=== PATIENT | female | born 1930 | race Two or more races ===

== ENCOUNTER 2017-07-25 07:43 | Inpatient (IN) | payer MEDICARE ==
[2017-07-25] VITALS (29 sets, daily range): BP systolic 89–169; BP diastolic 42–83
[~2017-07-25] VITALS: Ht 160 cm; Wt 51.3 kg
--- NOTE | 2017-07-25 07:48 | NUR ---
MARIAH FROM [facility] DUE TO SOB. PATIENT RECEIVED ON BREATHING TREATMENT SATING 95% HOWEVER PATIENT APPEARS IN DISTRESS WITH RR OF 30. PATIENT IS AWAKE AND ALERT. SKIN IS WARM TO TOUCH AND NON DIAPHORETIC, TEMP 99.6. 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 CONNECTED PT TO TELE MONITOR,. MD DAVIS AT BEDSIDE WITH AN ORDER TO PLACE PT ON BIPAP.
[2017-07-25] MEDS ORDERED: methylPREDNISolone SOD SUCC 125 MG/2ML VIAL ONE (07:54)
[2017-07-25] MEDS ORDERED: ALBUTEROL FS 2.5 MG/3 ML VIAL.NEB CONTNEB ONE (08:00)
[2017-07-25] MEDS ORDERED: IPRATROPIUM NEB FS 0.5 MG/2.5 ML AMPUL.NEB NEB ONE (08:00)
[2017-07-25] MEDS ORDERED: methylPREDNISolone SOD SUCC 125 MG/2ML VIAL IV ONE (08:00)
--- NOTE | 2017-07-25 08:15 | NUR ---
DRY BOSS AT BS
[2017-07-25] MEDS ORDERED: IPRATROPIUM NEB FS 0.5 MG/2.5 ML AMPUL.NEB ONE (08:17)
[2017-07-25] MEDS ORDERED: ALBUTEROL FS 2.5 MG/3 ML VIAL.NEB ONE (08:17)
[2017-07-25] MEDS ORDERED: TIOT18CA3 IH (08:18)
[2017-07-25] MEDS ORDERED: IPRA0.2S9 IH (08:18)
[2017-07-25] MEDS ORDERED: ACET-868 PO ×2 (08:18)
[2017-07-25] MEDS ORDERED: LEVO50TA8 PO (08:18)
[2017-07-25] MEDS ORDERED: ZAFI20TA13 PO (08:18)
[2017-07-25] MEDS ORDERED: POLY15DR40 EACHEYE (08:18)
[2017-07-25] MEDS ORDERED: DONE10TA44 PO (08:18)
[2017-07-25] MEDS ORDERED: ZINC220C8 PO (08:18)
[2017-07-25] MEDS ORDERED: ASCO500T9 PO (08:18)
[2017-07-25] MEDS ORDERED: FLUT1BLS IH (08:18)
[2017-07-25] MEDS ORDERED: MULT-447 PO (08:18)
[2017-07-25] MEDS ORDERED: ALBU18HF2 IH (08:18)
[2017-07-25] MEDS ORDERED: CALC-261 PO (08:18)
[2017-07-25] MEDS ORDERED: CITA20TA19 PO (08:18)
[2017-07-25] MEDS ORDERED: AMIN30LI4 PO (08:19)
[2017-07-25] MEDS ORDERED: OLAN2.5T3 PO (08:19)
--- NOTE | 2017-07-25 08:25 | NUR ---
RT AT BEDSIDE FOR BREATHIGN TX
--- NOTE | 2017-07-25 08:29 | NUR ---
PT IS GOING TO ROOM 255
--- NOTE | 2017-07-25 08:29 | NUR ---
URINE SAMPLE SENT TO LAB
[2017-07-25 08:34] LABS: BASOPHILS # (AUTO) 0.1 /CMM (0.0-0.2); BASOPHILS % (AUTO) 0.3 % (0.0-2.0); EOSINOPHILS # (AUTO) 0.3 /CMM (0.0-0.7); EOSINOPHILS % (AUTO) 1.4 % (0.0-6.0); HEMATOCRIT 35 % (33-45); LYMPHOCYTES # (AUTO) 2.4 /CMM (0.8-4.8); LYMPHOCYTES % (AUTO) 13.5 % (20.0-44.0); MEAN CORPUSCULAR HEMOGLOBIN 25 PG (26.0-33.0); MEAN CORPUSCULAR HGB CONC 31 g/dl (31.0-36.0); MEAN CORPUSCULAR VOLUME 81 fL (82-100); MONOCYTES # (AUTO) 1.2 /CMM (0.1-1.30); MONOCYTES % (AUTO) 6.6 % (2.0-12.0); NEUTROPHILS # (AUTO) 13.7 /CMM (1.8-8.9); NEUTROPHILS % (AUTO) 78.2 % (43.0-81.0); PLATELET COUNT (AUTO) 262 /CMM (150-450); RDW COEFFICIENT OF VARIATION 15.2 (11.5-15.0); RED BLOOD CELL COUNT(AUTO) 4.33 MIL/uL (4.0-5.2); WHITE BLOOD COUNT (AUTO) 17.5 K/uL (4.3-11.0)
[2017-07-25 08:36] LABS: INR 0.94 (0.87-1.13)
--- NOTE | 2017-07-25 08:38 | NUR ---
PATIENT FOUND REMOVING BIPAP, STATING " I CANT BREATH ON THIS THING" EXPLAINED TO THE PATIENT THE IMPORTANCE OF BIPAP FOR OXYGEN. PATIENT AGREED TO KEEP IT BACK STATING " PUT IT ON PLEASE. PT WAS PUT BACK ON BIPAP.
--- NOTE | 2017-07-25 08:45 | NUR ---
PATIENT NOTED WITH BIPAP OFF AGAIN, IMMIDIATELY PLACED PT BACK ON BIPAP. EXPLAINED TO THE PATIENT THE IMPORTANCE AND VERBALIZED UNDERSTANDING. MD DAVIS MADE AWARE AND OBTAINED AN ORDER FOR SOFT RESTRAINTS. ASKED JANETH BROWN TO PUT RESTRAINTS. PATIENT'S VSS.
--- NOTE | 2017-07-25 08:50 | NUR ---
RT NOTE WALKED INTO PATIENTS ROOM AND FOUND WITH BIPAP MASK OFF WITH ALARM GOING OFF. PT CONTINUES TO REMOVE MASK. PT PLACED BACK ON BIPAP WITH MODERATE RESP DISTRESS. JAH KILGORE WAS TOLD AND IS AWARE.
[2017-07-25 08:51] LABS: APPEARANCE,URINE CLEAR (CLEAR); BILIRUBIN,URINE NEGATIVE (NEGATIVE); BLOOD, URINE TRACE-INTA Ery/uL (NEGATIVE); COLOR,URINE YELLOW (YELLOW); KETONES,URINE NEGATIVE (NEGATIVE); LEUKOCYTE ESTERASE ,URINE NEGATIVE (NEGATIVE); NITRITE, URINE NEGATIVE (NEGATIVE); PROTEIN,URINE TRACE mg/dl (NEGATIVE); UGLUCOSE NEGATIVE (NEGATIVE); UROBILINOGEN,URINE 0.2 EU/dL (0.2)
[2017-07-25 08:55] LABS: BACTERIA,URINE None seen /HPF (None Seen); SQUAMOUS EPITHELIAL CELL,UR Few /HPF (None Seen); WBC,URINE NONE SEEN /HPF (0-3)
[2017-07-25] MEDS ORDERED: DILTIAZEM HCL 50 MG IV IV ONE (09:00)
[2017-07-25] MEDS ORDERED: DILTIAZEM HCL 25 MG IV ONE (09:08)
--- NOTE | 2017-07-25 09:09 | NUR ---
PANEL ON-CALL PAGED
[2017-07-25] MEDS ORDERED: LORAZEPAM INJ 2 MG/ML VIAL IV ONE (09:30)
[2017-07-25 09:31] LABS: CARBON DIOXIDE 26 mmol/L (21-32); CHLORIDE 99 mmol/L (98-107); CREATININE 1.1 mg/dL (0.6-1.3); GLUCOSE 152 mg/dL (74-106); POTASSIUM 4.2 mmol/L (3.5-5.1); SODIUM SERUM 137 mmol/L (136-145); UREA NITROGEN, BLOOD 27 mg/dL (7-18)
[2017-07-25 09:36] LABS: BILIRUBIN,DIRECT 0.1 mg/dL (0.0-0.2); BILIRUBIN,TOTAL 0.3 mg/dL (0.2-1.0)
[2017-07-25 09:37] LABS: ALANINE AMINOTRANSFERASE 22 U/L (12-78); ALBUMIN 2.9 g/dL (3.4-5.0); ALKALINE PHOSPHATASE 70 U/L (46-116); ASPARTATE AMINOTRANSFERASE 31 U/L (15-37); TOTAL PROTEIN, SERUM 7.7 g/dL (6.4-8.2)
[2017-07-25 09:38] LABS: ABG BASE EXCESS 0.4 mmol/L; ABG OXYGEN SATURATION 99.2 % (92.0-98.5); ABG PCO2 44.5 mmHg (35.0-45.0); ABG PO2 486.4 mmHg (75.0-100.0); AaDO2 182.1 mmHg; COHb 0.3 % (0.5-1.5); MetHb 0.4 % (0.0-1.5); O2Hb 98.5 % (94.0-97.0); SITE, ABG Left Radial; VENT MODE, BG ST 15/5 16 100%
--- NOTE | 2017-07-25 09:38 | NUR ---
Kwaku solano in ED - 07/25/17 at 1259 by JOSE ICU NURSES NOT AWARE YET WHO'S ADMITTING THE PATIENT. CHARGE NURSE STILL IN AM MEETING.
[2017-07-25] MEDS ORDERED: LORAZEPAM INJ 2 MG/ML VIAL ONE (09:40)
[2017-07-25 09:50] LABS: B-TYPE NATRIURETIC PEPTIDE 674 PG/ML (0-125)
--- NOTE | 2017-07-25 10:02 | NUR ---
REPORT GIVEN TO JAH LU FOR AMARILIS
[2017-07-25] MEDS ORDERED: IV NS 0.9% 1,000 ML IV PRN (10:36)
--- NOTE | 2017-07-25 10:53 | NUR ---
PATIENT WAS TRANSFFERED TO ICU VIA ACLS. VSS
[2017-07-25] MEDS ORDERED: LORAZEPAM INJ 2 MG/ML VIAL IV PRN (11:00)
[2017-07-25] MEDS ORDERED: IPRATROPIUM NEB FS 0.5 MG/2.5 ML AMPUL.NEB IH PRN (11:00)
[2017-07-25] MEDS ORDERED: HYDROCODONE/APAP 5/325MG 1 EACH TABLET PO PRN (11:00)
[2017-07-25] MEDS ORDERED: MAG HYDROX/AL HYDROX/SIMETH 30 ML UDC PO PRN (11:00)
[2017-07-25] MEDS ORDERED: ZOLPIDEM TARTRATE 5 MG TABLET PO PRN (11:00)
[2017-07-25] MEDS ORDERED: ONDANSETRON HCL/PF 4 MG/2 ML VIAL IVP PRN (11:00)
[2017-07-25] MEDS ORDERED: DILTIAZEM HCL 25 MG IV IV PRN (11:00)
[2017-07-25] MEDS ORDERED: ALBUTEROL FS 2.5 MG/3 ML VIAL.NEB NEB PRN (11:00)
[2017-07-25] MEDS ORDERED: MORPHINE SULFATE INJ 4 MG/ML DISP.SYRIN IV PRN (11:00)
--- NOTE | 2017-07-25 11:00 | NUR ---
RN NOTES RECEIVED PT ON BED, A/Ox1-2, DEMENTED, RESPIRATION EVEN AND UNLABORED, ENCOURAGED DEEP AN SLOW BREATHING , ON 4L O2 N/C , ON TELE , SR-ST , BEATTY DRAINING TO GRAVITY WITH YELLOW URINE, R AC IV G 20 AND L AC IV G 18 SITES CLEAN, DRY AND INTACT , SUPPORTIVE FAMILY AT THE BEDSIDE, WOUND CONSULT ORDERED , SR UP x3, CALL LIGHT WITHIN EASY REACH, BED LOCKED AND IN LOWEST POSITION ,CONTINUE TO MONITOR PT CLSOELY .
[2017-07-25] MEDS: ENOXAPARIN SODIUM 30 MG/0.3 ML DISP.SYRIN SQ SCH (11:11)
[2017-07-25] MEDS: methylPREDNISolone SOD SUCC 125 MG/2ML VIAL IV SCH ×2 (11:11→17:00)
[2017-07-25] MEDS ORDERED: POLYVINYL ALCOHOL 15 ML BOTTLE EACHEYE PRN (12:00)
[2017-07-25] MEDS ORDERED: IPRATROPIUM NEB FS 0.5 MG/2.5 ML AMPUL.NEB NEB SCH (12:00)
--- NOTE | 2017-07-25 14:36 | NUR ---
RN NOTES DR ISBELL AT THE BEDSIDE , O2 SAT 96%, CONTINUE TO MONITOR .
--- NOTE | 2017-07-25 14:39 | NUR ---
RN NOTES ABG ORDERED PER DR ISBELL , HR IN 90'S , BP 109/49 , O2 SAT 96%, CONTINUE TO MONITOR .
[2017-07-25 14:41] LABS: ABG BASE EXCESS 0.6 mmol/L; ABG OXYGEN SATURATION 92.9 % (92.0-98.5); ABG PCO2 43.1 mmHg (35.0-45.0); ABG PH 7.392 (7.350-7.450); ABG PO2 66.7 mmHg (75.0-100.0); AaDO2 168.9 mmHg; COHb 0.1 % (0.5-1.5); MetHb 0.4 % (0.0-1.5); O2Hb 92.4 % (94.0-97.0); SITE, ABG Left Radial
--- NOTE | 2017-07-25 14:57 | NUR ---
RN NOTES DR ISBELL NOTIFIED REGARDING LOW URIN OUTPUT . NEW ORDER RECEIVED.
[2017-07-25] MEDS ORDERED: IV NS 0.9% 250 ML IV ONE (15:00)
[2017-07-25] MEDS: Z GUARD REMEDY 2 OZ OINT TP PRN (15:33)
[2017-07-25] MEDS: CITALOPRAM HYDROBROMIDE 20 MG TABLET PO SCH (16:59)
--- NOTE | 2017-07-25 18:00 | NUR ---
RN NOTES PT REMAINS THE SAME, O2 SAT 100% ON 4L O2 N/C , PT IS MOUTH BREATHER WHEN SHE SLEEPS , NS AT 100CC/HR RUNNING VIA R AC IV SITE, BEATTY DRAINING TO GRAVITY , SR UP x3, CALL LIGHT WITHIN EASY REACH , WILL ENDORSE TO PM SHIFT FOR AMARILIS .
[2017-07-25] MEDS: IPRATROPIUM NEB FS 0.5 MG/2.5 ML AMPUL.NEB NEB SCH (19:47)
[2017-07-25] MEDS: ALBUTEROL FS 2.5 MG/3 ML VIAL.NEB NEB SCH (19:47)
--- NOTE | 2017-07-25 20:24 | NUR ---
AIRFIELD ENGINEER OFFICER DF PT PLACED ON BIPAP BY RT RAND. PT WITH RESPIRATORY RATE OF 40-45. PT NOTED WITH DESATURATIONS OF 85%-90%. PT WITH PARKINSON DISEASE WITH TREMBLING OF BUE/RUE CAUSING ARTIFACTS OF EKG/PULSE OX MONITORING. BASELINE O2 SAT OF 100%.PT LAST ABG DURING DAYSHIFT OF 7.39/CO2 43/02 66/HCO3 25.6/O2 SAT OF 92.9% DR ISBELL AWARE OF LAST ABG. PT A/O X 1-2 FOLLOWS SIMPLE COMMANDS, ABLE TO LET NEEDS BE KNOWN.
[2017-07-25] MEDS: IV NS 0.9% 1,000 ML IV PRN (21:41)
[2017-07-25] MEDS: DONEPEZIL 5 MG TABLET PO SCH (22:00)
[2017-07-26] VITALS (19 sets, daily range): BP systolic 99–134; BP diastolic 56–78
[2017-07-26] MEDS: methylPREDNISolone SOD SUCC 125 MG/2ML VIAL IV SCH ×4 (00:19→17:58)
[2017-07-26] MEDS: IPRATROPIUM NEB FS 0.5 MG/2.5 ML AMPUL.NEB NEB SCH ×4 (01:36→18:55)
[2017-07-26] MEDS: ALBUTEROL FS 2.5 MG/3 ML VIAL.NEB NEB SCH ×4 (01:36→18:55)
--- NOTE | 2017-07-26 02:30 | NUR ---
FAST FOOD SHIFT LEAD DF PT ATTEMPTING TO REMOVE BIPAP, I PLACED BIPAP BACK ON PT AND PT WANTS TO REMOVE PT STATES SHE IS UNABLE TO TOLERATE BIPAP ANYMORE.PT WAS ON BIPAP SINCE 07/25/17 @2029.PT VSS PLACED ON N/C@4LPM WITH O2 SAT OF 99-100%.RR OF 32RPM. NO RESPIRATORY DISTRESS NOTED. PT FOLLOWING COMMANDS A/OX2 WITH BASELINE CONFUSION.
[2017-07-26 04:42] LABS: HEMATOCRIT 28 % (33-45); HEMOGLOBIN 9.2 g/dL (11.5-14.8); LYMPHOCYTES # (AUTO) 0.5 /CMM (0.8-4.8); MEAN CORPUSCULAR HEMOGLOBIN 26 PG (26.0-33.0); MEAN CORPUSCULAR HGB CONC 33 g/dl (31.0-36.0); MEAN CORPUSCULAR VOLUME 80 fL (82-100); MONOCYTES # (AUTO) 0.3 /CMM (0.1-1.30); PLATELET COUNT (AUTO) 217 /CMM (150-450); RDW COEFFICIENT OF VARIATION 15.1 (11.5-15.0); RED BLOOD CELL COUNT(AUTO) 3.51 MIL/uL (4.0-5.2); WHITE BLOOD COUNT (AUTO) 15.8 K/uL (4.3-11.0)
[2017-07-26 05:04] LABS: CALCIUM, SERUM 8.3 mg/dL (8.5-10.1); CARBON DIOXIDE 28 mmol/L (21-32); CHLORIDE 103 mmol/L (98-107); CREATININE 0.7 mg/dL (0.6-1.3); GLUCOSE 143 mg/dL (74-106); MAGNESIUM 1.9 mg/dL (1.8-2.4); PHOSPHORUS 2.7 mg/dL (2.5-4.9); POTASSIUM 4.1 mmol/L (3.5-5.1); SODIUM SERUM 136 mmol/L (136-145); UREA NITROGEN, BLOOD 25 mg/dL (7-18)
[2017-07-26 05:23] LABS: LYMPHOCYTES % (MANUAL) 6 % (16-48); MONOCYTES % (MANUAL) 2 % (0-11.0); NEUTROPHILS % (MANUAL) 92 (42-76)
--- NOTE | 2017-07-26 07:41 | NUR ---
RN NOTES RECEIVED PT FROM SAFETY SITTER IN STABLE CONDITION, A&0X1-2 WITH PERIODS OF CONFUSION. ON 4L NC SATING WELL NO SOB OR DISTRESS NOTED. SR ON THE TELE CARYL HR 87. LAC 18G IV SITE INTACT WITH NS@100ML/HR. BEATTY DRAINING TO GRAVITY, YELLOW IN COLOR. BED LOCKED AND IN LOWEST POSITION, CALL LIGHT WITHIN REACH, SIDE RAILS UPX3, WILL CONT TO CARYL.
--- NOTE | 2017-07-26 08:10 | NUR ---
WOUND CARE CONSULT: PT PRESENTS WITH SACRAL DEEP TISSUE INJURY WHICH IS INTACT, RT 4TH DORSAL TOE DRY ESCHAR AND BILATERAL LOWER LEG DRY ABRASIONS AND DRY SCAB, PRESENT ON ADMISSION. SLIGHT REDNESS NOTED TO NASAL BRIDGE. BIPAP IS OFF AT THIS TIME. BRUISING NOTED TO UPPER EXTREMITIES. ALL SKIN PROTECTION RECOMMENDATIONS DISCUSSED WITH NURSING STAFF. FIRST STEP MATTRESS ORDERED. WILL SEE PRN. STAFFORD IN AGREEMENT WITH PLAN OF CRE. CURRENT DORIS SCORE IS 11. Addendum: 07/26/17 at 0813 by YURY ANDERSON WNDNU Amended: Links added.
[2017-07-26] MEDS: CITALOPRAM HYDROBROMIDE 20 MG TABLET PO SCH ×2 (08:14→17:57)
[2017-07-26] MEDS: CALCIUM CARB 250MG /VITAMIN D 1 UDTAB PO SCH ×2 (08:14→17:57)
[2017-07-26] MEDS: ASCORBIC ACID 500 MG TABLET PO SCH (08:14)
[2017-07-26] MEDS: PANTOPRAZOLE 40 MG TABLET.DR PO SCH (08:14)
[2017-07-26] MEDS: ZINC SULFATE 220 MG CAPSULE PO SCH (08:14)
[2017-07-26] MEDS: LEVOTHYROXINE SODIUM 50 MCG TABLET PO SCH (08:14)
[2017-07-26] MEDS: MULTIPLE VIT (LYCOPENE/FA/MV,CA,IRON,MIN/LUT)1 TAB PO SCH (08:14)
[2017-07-26] MEDS: ENOXAPARIN SODIUM 30 MG/0.3 ML DISP.SYRIN SQ SCH (08:14)
[2017-07-26] MEDS: PROSOURCE / PROSTAT (PYXIS) 30 ML UDC PO SCH (08:15)
[2017-07-26] MEDS: OLANZAPINE 5 MG/TAB.RAPDIS PO SCH (08:15)
[2017-07-26] MEDS: FLUTICASONE/VILANTEROL 1 EACH BLST.W.DEV IH SCH (08:16)
[2017-07-26] MEDS: NEOMY SULF/BACITRAC ZN/POLY 15 GM TUBE TP SCH (13:12)
--- NOTE | 2017-07-26 14:00 | NUR ---
ICU/COMMERCIAL REAL ESTATE SALES MANAGER OF CARE REPORT RECEIVED FROM ICU NURSE HEIDI, TO CONTINUE CARE. MONITORING CONTINUED.
--- NOTE | 2017-07-26 15:14 | NUR ---
PT TRANSFERRED TO [facility]. HHN DEFERRED ZERO DISTRESS NOTED
--- NOTE | 2017-07-26 15:30 | NUR ---
ICU/LEAD SQL DEVELOPER TO [facility] - ROOM 117#2 REPORT GIVEN TO [facility] NURSE SHRUTHI, TO CONTINUE CARE. PT TRANSFERRED VIA BED, TO [facility].
--- NOTE | 2017-07-26 15:35 | NUR ---
RN NOTE RECEIVED PT FROM ICU ON BED, AOX2, ON NC. ON TELE MONITOR, SR- ST 100, IVF RUNNING, IVS INTACT, F/C IN PLACE, DRAINING URINE. CO PAIN IN STOMACH RELATED TO HARD BM. STANFORD SOFT WRIST RESTRAINTS IN PLACE, CALL LIGHT WITHIN REACH, BED IN LOW, LOCKED POSITION, BED ALARM ON. ON KCI MATTRESS. WILL MONITOR.
[2017-07-26] MEDS ORDERED: POTASSIUM CHLORIDE 20 MEQ POWDER PACKET PO ONE (17:00)
[2017-07-26] MEDS: IV NS 0.9% 1,000 ML IV PRN (17:56)
[2017-07-26] MEDS: MAGNESIUM HYDROXIDE 30 ML UDC PO PRN (18:07)
--- NOTE | 2017-07-26 19:30 | NUR ---
[facility]/RN NOTES: RECEIVED PT. IN BED W/ HOB ELEVATED W/ DAUGHTER SITTING AT BEDSIDE. W/ O2 @ 4LPM VIA N/C SAT 95%. NO C/O SOB OR PAIN AT THIS TIME. ON TELE MONITOR W/ SR @ 92. SOFT BILATERAL WRIST RESTRAINS ARE OFF DAUGHTER IS AT BED SIDE. RAC /LFA SL G 20 PATENT AND INTACT W/ NO S/S OF INFECTION/INFILTRATION NOTED. W/ IVF OF NS @ 100ML /HR . BEDS LOCKED AND IN LOW POSITION. CALL LIGHT W/ REACH. ALL NEEDS MEET.
[2017-07-26] MEDS: DONEPEZIL 5 MG TABLET PO SCH (21:36)
[2017-07-27] VITALS: BP 140/76
[2017-07-27] MEDS: methylPREDNISolone SOD SUCC 125 MG/2ML VIAL IV SCH ×5 (00:15→23:25)
[2017-07-27] MEDS: IPRATROPIUM NEB FS 0.5 MG/2.5 ML AMPUL.NEB NEB SCH ×4 (01:28→19:18)
[2017-07-27] MEDS: ALBUTEROL FS 2.5 MG/3 ML VIAL.NEB NEB SCH ×4 (01:28→19:18)
[2017-07-27 04:00] VITALS: BP 129/72
[2017-07-27] MEDS: IV NS 0.9% 1,000 ML IV PRN (04:09)
--- NOTE | 2017-07-27 07:05 | NUR ---
RN NOTES: RECEIVED PT. ON BED , A/Ox1, RESPIRATION EVEN AND UNLABORED, ON 4L O2 N/C ,NO SOB NOTED. ON TELE SR HR IN 70'S, R AC AND LFA IV SITES CDI, WITH NS AT 100C/HR RUNNING, WITH IVF OF NS @ 100ML /HR . BEDS LOCKED AND IN LOW POSITION. CALL LIGHT WITHIN EASY REACH. HOB ELEVATED, SR UP x3, CONTINUE TO MONITOR PT CLSOELY .
--- NOTE | 2017-07-27 07:28 | NUR ---
[facility]/RN NOTES: NO ACUTE CHANGES NOTED DURING THIS SHIFT. REPORT GIVEN TO AM NURSE FOR AMARILIS.
[2017-07-27 08:00] VITALS: BP 147/85
[2017-07-27] MEDS: CALCIUM CARB 250MG /VITAMIN D 1 UDTAB PO SCH ×2 (08:28→18:08)
[2017-07-27] MEDS: CITALOPRAM HYDROBROMIDE 20 MG TABLET PO SCH ×2 (08:28→18:08)
[2017-07-27] MEDS: LEVOTHYROXINE SODIUM 50 MCG TABLET PO SCH (08:28)
[2017-07-27] MEDS: PANTOPRAZOLE 40 MG TABLET.DR PO SCH (08:28)
[2017-07-27] MEDS: MULTIPLE VIT (LYCOPENE/FA/MV,CA,IRON,MIN/LUT)1 TAB PO SCH (08:28)
[2017-07-27] MEDS: ZINC SULFATE 220 MG CAPSULE PO SCH (08:29)
[2017-07-27] MEDS: ASCORBIC ACID 500 MG TABLET PO SCH (08:29)
[2017-07-27] MEDS: OLANZAPINE 5 MG/TAB.RAPDIS PO SCH (08:29)
[2017-07-27] MEDS: ENOXAPARIN SODIUM 30 MG/0.3 ML DISP.SYRIN SQ SCH (08:30)
[2017-07-27] MEDS: NEOMY SULF/BACITRAC ZN/POLY 15 GM TUBE TP SCH (08:31)
[2017-07-27] MEDS: PROSOURCE / PROSTAT (PYXIS) 30 ML UDC PO SCH (08:31)
[2017-07-27] MEDS: FLUTICASONE/VILANTEROL 1 EACH BLST.W.DEV IH SCH (08:32)
[2017-07-27 11:04] LABS: HEMATOCRIT 27 % (33-45); HEMOGLOBIN 8.8 g/dL (11.5-14.8); LYMPHOCYTES # (AUTO) 0.3 /CMM (0.8-4.8); LYMPHOCYTES % (AUTO) 1.9 % (20.0-44.0); MEAN CORPUSCULAR HEMOGLOBIN 26 PG (26.0-33.0); MEAN CORPUSCULAR HGB CONC 33 g/dl (31.0-36.0); MEAN CORPUSCULAR VOLUME 80 fL (82-100); MONOCYTES # (AUTO) 0.5 /CMM (0.1-1.30); MONOCYTES % (AUTO) 3.2 % (2.0-12.0); NEUTROPHILS # (AUTO) 16.3 /CMM (1.8-8.9); NEUTROPHILS % (AUTO) 94.9 % (43.0-81.0); PLATELET COUNT (AUTO) 240 /CMM (150-450); RED BLOOD CELL COUNT(AUTO) 3.38 MIL/uL (4.0-5.2); WHITE BLOOD COUNT (AUTO) 17.2 K/uL (4.3-11.0)
[2017-07-27 11:19] LABS: ALANINE AMINOTRANSFERASE 26 U/L (12-78); ALBUMIN 2.2 g/dL (3.4-5.0); ALKALINE PHOSPHATASE 50 U/L (46-116); ASPARTATE AMINOTRANSFERASE 18 U/L (15-37); BILIRUBIN,TOTAL 0.2 mg/dL (0.2-1.0); CALCIUM, SERUM 8.1 mg/dL (8.5-10.1); CARBON DIOXIDE 27 mmol/L (21-32); CHLORIDE 104 mmol/L (98-107); CREATININE 0.7 mg/dL (0.6-1.3); GLUCOSE 227 mg/dL (74-106); PHOSPHORUS 1.6 mg/dL (2.5-4.9); POTASSIUM 3.5 mmol/L (3.5-5.1); SODIUM SERUM 139 mmol/L (136-145); UREA NITROGEN, BLOOD 25 mg/dL (7-18)
[2017-07-27 12:00] VITALS: BP 147/85
--- NOTE | 2017-07-27 12:00 | NUR ---
RN NOTES PT PULLED L FA IV OUT , STANFORD SOFT WRIST RESTRAIN PLACED BACK ON FOR PT SAFETY .
[2017-07-27 13:01] LABS: LYMPHOCYTES % (MANUAL) 1 % (16-48); MONOCYTES % (MANUAL) 2 % (0-11.0); NEUTROPHILS % (MANUAL) 97 (42-76)
[2017-07-27] MEDS ORDERED: NEUTRA PHOS 1 POWD.PACKET NG ONE (13:30)
[2017-07-27 16:00] VITALS: BP 121/78
--- NOTE | 2017-07-27 18:00 | NUR ---
RN NOTES PT STABLE, L AC IV SITE CDI, NO SIGNIFICANT CHANGES NOTED ON THIS SHIFT , SR UP x3, CALL LIGHT WITHIN EASY REACH, WILL ENDORSE TO ROAD DRIVER NURSE FOR AMARILIS
--- NOTE | 2017-07-27 19:30 | NUR ---
[facility]/RN NOTES: RECEIVED PT. IN BED W/ HOB ELEVATED. W/ O2 @ 4LPM VIA N/C SAT 95%. NO C/O SOB OR PAIN AT THIS TIME. ON TELE MONITOR W/ SR @ 86. SOFT BILATERAL WRIST RESTRAINS ON. LAC SL G 22 PATENT AND INTACT W/ NO S/S OF INFECTION/INFILTRATION NOTED. BEDS LOCKED AND IN LOW POSITION. CALL LIGHT W/ REACH. ALL NEEDS MEET.
[2017-07-27 20:00] VITALS: BP 122/68
[2017-07-27] MEDS: DONEPEZIL 5 MG TABLET PO SCH (21:27)
[2017-07-28] VITALS: BP_SYST 122; BP_SYST 125; BP_DIAS 68; BP_DIAS 70
[2017-07-28] MEDS: IPRATROPIUM NEB FS 0.5 MG/2.5 ML AMPUL.NEB NEB SCH ×4 (00:46→19:52)
[2017-07-28] MEDS: ALBUTEROL FS 2.5 MG/3 ML VIAL.NEB NEB SCH ×4 (00:46→19:52)
[2017-07-28 04:00] VITALS: BP 140/77
[2017-07-28] MEDS: methylPREDNISolone SOD SUCC 125 MG/2ML VIAL IV SCH ×3 (05:10→17:12)
[2017-07-28 06:39] LABS: HEMATOCRIT 30 % (33-45); HEMOGLOBIN 9.8 g/dL (11.5-14.8); LYMPHOCYTES # (AUTO) 0.6 /CMM (0.8-4.8); LYMPHOCYTES % (AUTO) 4.1 % (20.0-44.0); MEAN CORPUSCULAR HEMOGLOBIN 26 PG (26.0-33.0); MEAN CORPUSCULAR HGB CONC 32 g/dl (31.0-36.0); MEAN CORPUSCULAR VOLUME 80 fL (82-100); MONOCYTES # (AUTO) 0.5 /CMM (0.1-1.30); MONOCYTES % (AUTO) 3.1 % (2.0-12.0); NEUTROPHILS # (AUTO) 14.1 /CMM (1.8-8.9); NEUTROPHILS % (AUTO) 92.8 % (43.0-81.0); PLATELET COUNT (AUTO) 272 /CMM (150-450); RDW COEFFICIENT OF VARIATION 15.2 (11.5-15.0); RED BLOOD CELL COUNT(AUTO) 3.78 MIL/uL (4.0-5.2); WHITE BLOOD COUNT (AUTO) 15.2 K/uL (4.3-11.0)
--- NOTE | 2017-07-28 07:19 | NUR ---
[facility]/RN NOTES: NO ACUTE CHANGES NOTED DURING THIS SHIFT. REPORT GIVEN TO AM NURSE FOR AMARILIS.
[2017-07-28 07:25] LABS: CALCIUM, SERUM 8.8 mg/dL (8.5-10.1); CARBON DIOXIDE 30 mmol/L (21-32); CHLORIDE 100 mmol/L (98-107); CREATININE 0.7 mg/dL (0.6-1.3); GLUCOSE 153 mg/dL (74-106); MAGNESIUM 1.9 mg/dL (1.8-2.4); PHOSPHORUS 2.4 mg/dL (2.5-4.9); SODIUM SERUM 139 mmol/L (136-145); UREA NITROGEN, BLOOD 21 mg/dL (7-18)
--- NOTE | 2017-07-28 07:30 | NUR ---
[facility]/RN AM NOTES: RECEIVED PT. IN BED W/ HOB ELEVATED. AAO X 2, W/ O2 @ 4LPM VIA N/C SAT 95%. NO C/O SOB OR PAIN AT THIS TIME. ON TELE MONITOR W/ SR @ 95. LEFT AC G22, FLSUHES WELL, SITE CLEAR, SOFT BILATERAL WRIST RESTRAINS ON. RELEASED AND CHECKED FOR CIRCULATION, ON REGULAR DIET, SEE NURSING FLOWSHEET FOR SKIN ISSUES, WILL TURN AND REPOSITION, RELEASE AND CHECK CIRCULATION Q 2 HOURS AND BEDS LOCKED AND IN LOW POSITION. CALL LIGHT W/ REACH. CONTINUE TO MONITOR.
[2017-07-28 07:48] LABS: IRON, SERUM 15 ug/dl (50-175); TOTAL IRON BINDING CAPACITY 182 ug/dl (250-450)
[2017-07-28] MEDS: PANTOPRAZOLE 40 MG TABLET.DR PO SCH (07:57)
[2017-07-28] MEDS: LEVOTHYROXINE SODIUM 50 MCG TABLET PO SCH (07:57)
[2017-07-28 08:00] VITALS: BP 133/80
[2017-07-28] MEDS: CALCIUM CARB 250MG /VITAMIN D 1 UDTAB PO SCH ×2 (08:10→17:12)
[2017-07-28] MEDS: FLUTICASONE/VILANTEROL 1 EACH BLST.W.DEV IH SCH (08:10)
[2017-07-28] MEDS: MULTIPLE VIT (LYCOPENE/FA/MV,CA,IRON,MIN/LUT)1 TAB PO SCH (08:10)
[2017-07-28] MEDS: CITALOPRAM HYDROBROMIDE 20 MG TABLET PO SCH ×2 (08:11→17:12)
[2017-07-28] MEDS: ZINC SULFATE 220 MG CAPSULE PO SCH (08:11)
[2017-07-28] MEDS: OLANZAPINE 5 MG/TAB.RAPDIS PO SCH (08:11)
[2017-07-28] MEDS: PROSOURCE / PROSTAT (PYXIS) 30 ML UDC PO SCH (08:11)
[2017-07-28] MEDS: ASCORBIC ACID 500 MG TABLET PO SCH (08:11)
[2017-07-28] MEDS: NEOMY SULF/BACITRAC ZN/POLY 15 GM TUBE TP SCH (08:12)
[2017-07-28] MEDS: ENOXAPARIN SODIUM 30 MG/0.3 ML DISP.SYRIN SQ SCH (08:13)
--- NOTE | 2017-07-28 09:30 | NUR ---
[facility] RN NOTES ADMINISTERED DUE MEDS.
[2017-07-28] MEDS: POTASSIUM CHLORIDE 20 MEQ TAB.PRT.SR PO SCH ×3 (10:48→12:44)
[2017-07-28 12:00] VITALS: BP 127/68
[2017-07-28] MEDS ORDERED: K PHOS NEUTRAL 250 MG TABLET PO ONE (13:00)
[2017-07-28 16:00] VITALS: BP 120/67
--- NOTE | 2017-07-28 18:25 | NUR ---
[facility]/RN CLOSING NOTES: PT. RESTING IN BED COMFORTABLY W/ HOB ELEVATED. AAO X 2, W/ O2 @ 4LPM VIA N/C SAT 97%. NO C/O SOB OR PAIN AT THIS TIME. ON TELE MONITOR W/ SR HR 92. LEFT AC G22, FLUSHES WELL, SITE CLEAR, SOFT BILATERAL WRIST RESTRAINTS RELEASED AT THIS TIME. ON REGULAR DIET, TURNED AND REPOSITIONED Q 2 HOURS, PM CARE DONE, PERFORMED PRESCRIBED WOUND TREATMENT, BEDS LOCKED AND IN LOW POSITION. CALL LIGHT W/ IN REACH. ALL NEEDS MET, NO OTHER SIGNIFICANT CHANGE IN CONDITION. WILL ENDORSE TO NEXT SHIFT FOR AMARILIS.
--- NOTE | 2017-07-28 19:41 | NUR ---
[facility] RN INITIAL NOTES: RECEIVED PT. IN BED W/ HOB ELEVATED. AAO X 2, W/ O2 @ 4LPM VIA N/C SAT 96%. NO C/O SOB OR PAIN AT THIS TIME. ON TELE MONITOR W/ SR @ 90'S. LEFT AC G22, FLUSH WELL, SITE CLEAR, SOFT BILATERAL WRIST RESTRAINS ON. RELEASED AND CHECKED FOR CIRCULATION, ON REGULAR DIET, SEE NURSING FLOW SHEET FOR SKIN ISSUES, WILL TURN AND REPOSITION, RELEASE AND CHECK CIRCULATION Q 2 HOURS AND BEDS LOCKED AND IN LOW POSITION. CALL LIGHT W/ REACH. CONTINUE TO MONITOR.
[2017-07-28 20:00] VITALS: BP 133/68
[2017-07-28] MEDS: DONEPEZIL 5 MG TABLET PO SCH (21:23)
[2017-07-29 00:43] VITALS: BP 133/68
[2017-07-29] MEDS: methylPREDNISolone SOD SUCC 125 MG/2ML VIAL IV SCH ×4 (00:53→17:13)
[2017-07-29] MEDS: IPRATROPIUM NEB FS 0.5 MG/2.5 ML AMPUL.NEB NEB SCH ×4 (01:55→19:22)
[2017-07-29] MEDS: ALBUTEROL FS 2.5 MG/3 ML VIAL.NEB NEB SCH ×4 (01:55→19:23)
[2017-07-29 04:00] VITALS: BP 160/88
--- NOTE | 2017-07-29 06:10 | NUR ---
RN [facility] CLOSING NOTES ENDORSED PT ON NC @ 4L, NO EPISODE OF DISTRESS OR SIGN OF PAIN, KEPT CLEAN AND DRY, WELL REPOSITIONED, PT ON SOFT WRIST RESTRAIN, GETS ANXIOUS WHEN WOKEN UP TO OBTAIN VS, IN AM BP UPON WAKING PT BP TRENDED UP TO 160/88 NO PRN, WILL ENDORSE TO AM SHIFT NURSE TO F/U WITH VS, PT STABLE.
--- NOTE | 2017-07-29 07:05 | NUR ---
RN NOTES: RECEIVED PT. ON BED , A/Ox1, CONFUED , ON 4L O2 N/C , NO SOB NOTED, RESPIRATION EVEN AND UNLABORED, ON TELE SR HR IN 80'S , LEFT AC G22 IV SITE, CDI, SOFT BILATERAL WRIST RESTRAINS ON. RELEASED AND CHECKED FOR CIRCULATION, WILL TURN AND REPOSITION, BEDS LOCKED AND IN LOWEST POSITION. CALL LIGHT WITHIN EASY REACH. SR UP x3, CONTINUE TO MONITOR PT CLSOELY .
[2017-07-29 07:38] LABS: CALCIUM, SERUM 8.6 mg/dL (8.5-10.1); CARBON DIOXIDE 37 mmol/L (21-32); CHLORIDE 96 mmol/L (98-107); CREATININE 0.7 mg/dL (0.6-1.3); GLUCOSE 153 mg/dL (74-106); POTASSIUM 3.5 mmol/L (3.5-5.1); SODIUM SERUM 138 mmol/L (136-145); UREA NITROGEN, BLOOD 18 mg/dL (7-18)
[2017-07-29 08:00] VITALS: BP 134/77
[2017-07-29] MEDS: OLANZAPINE 5 MG/TAB.RAPDIS PO SCH (08:06)
[2017-07-29] MEDS: CITALOPRAM HYDROBROMIDE 20 MG TABLET PO SCH ×2 (08:06→17:14)
[2017-07-29] MEDS: ASCORBIC ACID 500 MG TABLET PO SCH (08:06)
[2017-07-29] MEDS: LEVOTHYROXINE SODIUM 50 MCG TABLET PO SCH (08:06)
[2017-07-29] MEDS: CALCIUM CARB 250MG /VITAMIN D 1 UDTAB PO SCH ×2 (08:06→17:13)
[2017-07-29] MEDS: ZINC SULFATE 220 MG CAPSULE PO SCH (08:06)
[2017-07-29] MEDS: MULTIPLE VIT (LYCOPENE/FA/MV,CA,IRON,MIN/LUT)1 TAB PO SCH (08:06)
[2017-07-29] MEDS: PANTOPRAZOLE 40 MG TABLET.DR PO SCH (08:06)
[2017-07-29] MEDS: FLUTICASONE/VILANTEROL 1 EACH BLST.W.DEV IH SCH (08:08)
[2017-07-29] MEDS: ENOXAPARIN SODIUM 30 MG/0.3 ML DISP.SYRIN SQ SCH (08:08)
[2017-07-29] MEDS: PROSOURCE / PROSTAT (PYXIS) 30 ML UDC PO SCH (08:10)
[2017-07-29] MEDS: NEOMY SULF/BACITRAC ZN/POLY 15 GM TUBE TP SCH (08:11)
[2017-07-29 12:00] VITALS: BP 119/67
[2017-07-29] MEDS: ACETAMINOPHEN 325 MG TABLET PO PRN (13:53)
--- NOTE | 2017-07-29 14:00 | NUR ---
RN NOTES SUPPORTIVE DAUGHTER AT THE BEDSIDE , VSS STABLE CONTINUE TO MONITOR .
[2017-07-29] MEDS ORDERED: FUROSEMIDE 20 MG/2 ML VIAL IV ONE (15:00)
[2017-07-29 16:00] VITALS: BP 114/73
--- NOTE | 2017-07-29 16:13 | NUR ---
RN NOTES HR A.FIB , HR IN 110'S , DR HEREDIA ON AT THE BEDSIDE AND WAS NOTIFIED, PT IS ASYMPTOMATIC , CARDIZEM IV GIVEN , CONTINUE TO MONITOR CLOSELY .
--- NOTE | 2017-07-29 18:38 | NUR ---
RN NOTES PT STABLE , HR A.FIB IN LOW 100'S , SR UP x3, BED LOCKED AND IN LOWEST POSITION ,WILL ENDORSE TO CORK PAINTER AND GRADER NURSE FOR AMARILIS.
--- NOTE | 2017-07-29 19:30 | NUR ---
RN INITIAL NOTES RECEIVED PT AWAKE ON BED, A/OX 3. ON 4L NASAL CANNULA, SATURATING WELL, NO S/S OF RESP DISTRESS. CURRENTLY SR ON THE MONITOR, HR 90'S. NO COMPLAINTS OF SOB OR CHEST PAIN. BEATTY CATH IS IN PLACE. LEFT AC 22G IS LEAKING WHEN FLUSHED, DC'ED THIS IV ACCESS. INSERTED A 22G IV ACCESS ON LEFT HAND, FLUSHED AND PATENT, NO S/S OF INFILTRATION/INFECTION, DRESSING CDI. BED LOW AND LOCKED, SIDERAILS UP, CALL LIGHT WITHIN REACH, BED ALARM ON. WILL MONITOR
[2017-07-29 20:00] VITALS: BP 116/72
[2017-07-29] MEDS: DONEPEZIL 5 MG TABLET PO SCH (21:02)
[2017-07-30] VITALS: BP 130/75
[2017-07-30] MEDS: methylPREDNISolone SOD SUCC 125 MG/2ML VIAL IV SCH ×3 (00:39→12:10)
[2017-07-30] MEDS: ALBUTEROL FS 2.5 MG/3 ML VIAL.NEB NEB SCH ×4 (01:09→20:15)
[2017-07-30] MEDS: IPRATROPIUM NEB FS 0.5 MG/2.5 ML AMPUL.NEB NEB SCH ×4 (01:10→20:15)
[2017-07-30 04:00] VITALS: BP 114/75
--- NOTE | 2017-07-30 06:30 | NUR ---
RN CLOSING NOTES PT REMAINS STABLE OF THE MOMENT. ALL DUE MEDS GIVEN, AM CARE PROVIDED. WILL ENDORSE AMARILIS TO AM RN
--- NOTE | 2017-07-30 07:10 | NUR ---
RN INITIAL NOTES: REC'D PT ASLEEP ON BED, NOT IN ANY DISTRESS, A/O X 2 W/ CONFUSION & FORGETFULNESS. ON NC AT 4LPM, NO SOB. ON TELEMONITOR, SR W/ HR 92 BPM. HAS LFA G22, SL, FLUSHING WELL, PATENT & INTACT W/ NO S/SX OF INFECTION/INFILTRATION NOTED. HAS FC DRAINING TO ADEQUATE URINE OUTPUT. PROVIDED COMFORT & SAFETY MEASURES. BED KEPT LOW & IN LOCKED POS. CALL LIGHT PLACED W/IN REACH. NOTED BILATERAL SOFT WRIST RESTRAINTS ON D/T EPISODE OF PULLING OUT IV LINE ACCESS. WILL CONTINUE TO MONITOR & ATTEND PT NEEDS.
[2017-07-30 07:16] LABS: BASOPHILS % (AUTO) 0.2 % (0.0-2.0); EOSINOPHILS % (AUTO) 0.1 % (0.0-6.0); HEMATOCRIT 33 % (33-45); HEMOGLOBIN 10.8 g/dL (11.5-14.8); LYMPHOCYTES # (AUTO) 0.7 /CMM (0.8-4.8); LYMPHOCYTES % (AUTO) 4.3 % (20.0-44.0); MEAN CORPUSCULAR HEMOGLOBIN 26 PG (26.0-33.0); MEAN CORPUSCULAR HGB CONC 33 g/dl (31.0-36.0); MEAN CORPUSCULAR VOLUME 81 fL (82-100); MONOCYTES # (AUTO) 0.3 /CMM (0.1-1.30); MONOCYTES % (AUTO) 1.9 % (2.0-12.0); NEUTROPHILS # (AUTO) 15.4 /CMM (1.8-8.9); NEUTROPHILS % (AUTO) 93.5 % (43.0-81.0); PLATELET COUNT (AUTO) 377 /CMM (150-450); RDW COEFFICIENT OF VARIATION 14.9 (11.5-15.0); RED BLOOD CELL COUNT(AUTO) 4.09 MIL/uL (4.0-5.2); WHITE BLOOD COUNT (AUTO) 16.4 K/uL (4.3-11.0)
[2017-07-30 07:22] LABS: CALCIUM, SERUM 8.9 mg/dL (8.5-10.1); CARBON DIOXIDE 36 mmol/L (21-32); CHLORIDE 97 mmol/L (98-107); CREATININE 0.9 mg/dL (0.6-1.3); GLUCOSE 148 mg/dL (74-106); MAGNESIUM 1.9 mg/dL (1.8-2.4); PHOSPHORUS 3.2 mg/dL (2.5-4.9); POTASSIUM 3.6 mmol/L (3.5-5.1); SODIUM SERUM 140 mmol/L (136-145); UREA NITROGEN, BLOOD 37 mg/dL (7-18)
[2017-07-30 08:00] VITALS: BP 113/71
[2017-07-30] MEDS: PANTOPRAZOLE 40 MG TABLET.DR PO SCH (08:17)
[2017-07-30] MEDS: CALCIUM CARB 250MG /VITAMIN D 1 UDTAB PO SCH ×2 (08:18→17:02)
[2017-07-30] MEDS: OLANZAPINE 5 MG/TAB.RAPDIS PO SCH (08:18)
[2017-07-30] MEDS: LEVOTHYROXINE SODIUM 50 MCG TABLET PO SCH (08:18)
[2017-07-30] MEDS: ASCORBIC ACID 500 MG TABLET PO SCH (08:18)
[2017-07-30] MEDS: ZINC SULFATE 220 MG CAPSULE PO SCH (08:18)
[2017-07-30] MEDS: MULTIPLE VIT (LYCOPENE/FA/MV,CA,IRON,MIN/LUT)1 TAB PO SCH (08:18)
[2017-07-30] MEDS: CITALOPRAM HYDROBROMIDE 20 MG TABLET PO SCH ×2 (08:18→17:02)
[2017-07-30] MEDS: PROSOURCE / PROSTAT (PYXIS) 30 ML UDC PO SCH (08:19)
[2017-07-30] MEDS: Z GUARD REMEDY 2 OZ OINT TP PRN (08:19)
[2017-07-30] MEDS: ENOXAPARIN SODIUM 30 MG/0.3 ML DISP.SYRIN SQ SCH (08:20)
[2017-07-30] MEDS: FLUTICASONE/VILANTEROL 1 EACH BLST.W.DEV IH SCH (08:21)
[2017-07-30] MEDS: NEOMY SULF/BACITRAC ZN/POLY 15 GM TUBE TP SCH (08:23)
[2017-07-30 09:03] LABS: BAND % (MANUAL) 1 % (0.0-5.0); LYMPHOCYTES % (MANUAL) 7 % (16-48); NEUTROPHILS % (MANUAL) 92 (42-76)
[2017-07-30 12:00] VITALS: BP 107/55
--- NOTE | 2017-07-30 15:16 | NUR ---
RN NOTES: PT SEEN & EXAMINED BY JOSIAH RED W/ ORDERS TO DO PT EVAL & DOWNGRADE PT TO TELE STATUS.
[2017-07-30 16:00] VITALS: BP 116/69
[2017-07-30] MEDS: MAGNESIUM HYDROXIDE 30 ML UDC PO PRN (17:02)
[2017-07-30] MEDS: methylPREDNISolone SOD SUCC 40 MG/ML VIAL IV SCH (17:04)
[2017-07-30] MEDS ORDERED: AZITHROMYCIN 500 MG in IV D5W 250 ML IV SCH (17:30)
[2017-07-30] MEDS: AMOX/CLAVULANATE 875 MG TABLET PO SCH (18:27)
--- NOTE | 2017-07-30 19:00 | NUR ---
RN CLOSING NOTES: NO ACUTE CHANGES NOTED W/IN SHIFT. PT TOLERATED O2 PER NC AT 4LPM, NO SOB. ON TELEMONITOR, STILL SR. LFA G22, SL, KEPT PATENT & INTACT W/ NO S/SX OF INFECTION/INFILTRATION NOTED. FC DRAINING TO ADEQUATE URINE OUTPUT. KEPT WELL RESTED. NEEDS ATTENDED. BED KEPT LOW & IN LOCKED POS. CALL LIGHT PLACED W/IN REACH. KEPT ON BILATERAL SOFT WRIST RESTRAINTS ON D/T EPISODE OF PULLING OUT IV LINE ACCESS & GETTING OUT OF BED. ENDORSED TO PM RN FOR AMARILIS.
[2017-07-30 20:00] VITALS: BP 129/76
[2017-07-30] MEDS: DONEPEZIL 5 MG TABLET PO SCH (21:23)
[2017-07-31] VITALS: BP 144/72
[2017-07-31] MEDS: IPRATROPIUM NEB FS 0.5 MG/2.5 ML AMPUL.NEB NEB SCH ×4 (01:47→20:11)
[2017-07-31] MEDS: ALBUTEROL FS 2.5 MG/3 ML VIAL.NEB NEB SCH ×4 (01:47→20:11)
[2017-07-31 04:00] VITALS: BP 132/64
[2017-07-31] MEDS: AMOX/CLAVULANATE 875 MG TABLET PO SCH ×2 (04:46→18:20)
--- NOTE | 2017-07-31 07:39 | NUR ---
RN NOTES RECEIVED PT AWAKE BUT CONFUSED; NAD. STANFORD SOFT WRIST RESTRAINTS IN PLACE; SKIN AND CIRCULATIONWNL.BEATTY IN PLACE DRAINING THRU GRAVITY.SAFETY ENSURED. CALL LIGHT WITHIN REACH.
[2017-07-31 07:55] LABS: EOSINOPHILS # (AUTO) 0.1 /CMM (0.0-0.7); EOSINOPHILS % (AUTO) 0.4 % (0.0-6.0); HEMATOCRIT 32 % (33-45); HEMOGLOBIN 10.6 g/dL (11.5-14.8); LYMPHOCYTES # (AUTO) 1.6 /CMM (0.8-4.8); LYMPHOCYTES % (AUTO) 9.4 % (20.0-44.0); MEAN CORPUSCULAR HEMOGLOBIN 26 PG (26.0-33.0); MEAN CORPUSCULAR HGB CONC 33 g/dl (31.0-36.0); MEAN CORPUSCULAR VOLUME 80 fL (82-100); MONOCYTES # (AUTO) 1.4 /CMM (0.1-1.30); MONOCYTES % (AUTO) 8.2 % (2.0-12.0); NEUTROPHILS # (AUTO) 13.9 /CMM (1.8-8.9); PLATELET COUNT (AUTO) 389 /CMM (150-450); RDW COEFFICIENT OF VARIATION 15.1 (11.5-15.0); RED BLOOD CELL COUNT(AUTO) 4.03 MIL/uL (4.0-5.2)
[2017-07-31 08:00] VITALS: BP 138/69
[2017-07-31 08:10] LABS: CALCIUM, SERUM 8.8 mg/dL (8.5-10.1); CHLORIDE 98 mmol/L (98-107); CREATININE 0.7 mg/dL (0.6-1.3); GLUCOSE 88 mg/dL (74-106); POTASSIUM 3.4 mmol/L (3.5-5.1); SODIUM SERUM 142 mmol/L (136-145); UREA NITROGEN, BLOOD 43 mg/dL (7-18)
[2017-07-31 08:14] LABS: CARBON DIOXIDE 41 mmol/L (21-32)
[2017-07-31] MEDS: methylPREDNISolone SOD SUCC 40 MG/ML VIAL IV SCH ×3 (08:27→16:02)
[2017-07-31] MEDS: ZINC SULFATE 220 MG CAPSULE PO SCH (08:29)
[2017-07-31] MEDS: MULTIPLE VIT (LYCOPENE/FA/MV,CA,IRON,MIN/LUT)1 TAB PO SCH (08:29)
[2017-07-31] MEDS: ENOXAPARIN SODIUM 30 MG/0.3 ML DISP.SYRIN SQ SCH (08:29)
[2017-07-31] MEDS: LEVOTHYROXINE SODIUM 50 MCG TABLET PO SCH (08:30)
[2017-07-31] MEDS: CITALOPRAM HYDROBROMIDE 20 MG TABLET PO SCH ×2 (08:30→16:02)
[2017-07-31] MEDS: FERROUS SULFATE (325 MG) 325 MG/TAB TABLET PO SCH (08:31)
[2017-07-31] MEDS: OLANZAPINE 5 MG/TAB.RAPDIS PO SCH (08:31)
[2017-07-31] MEDS: PANTOPRAZOLE 40 MG TABLET.DR PO SCH (08:31)
[2017-07-31] MEDS: CALCIUM CARB 250MG /VITAMIN D 1 UDTAB PO SCH ×2 (08:31→16:02)
[2017-07-31] MEDS: ASCORBIC ACID 500 MG TABLET PO SCH (08:31)
[2017-07-31] MEDS: PROSOURCE / PROSTAT (PYXIS) 30 ML UDC PO SCH (08:36)
[2017-07-31] MEDS: NEOMY SULF/BACITRAC ZN/POLY 15 GM TUBE TP SCH (08:43)
[2017-07-31] MEDS: FLUTICASONE/VILANTEROL 1 EACH BLST.W.DEV IH SCH (09:47)
[2017-07-31 12:00] VITALS: BP 109/57
[2017-07-31] MEDS ORDERED: POTASSIUM CHLORIDE 20 MEQ TAB.PRT.SR PO SCH (12:30)
[2017-07-31 14:39] LABS: ABG BASE EXCESS 12.6 mmol/L; ABG OXYGEN SATURATION 97.2 % (92.0-98.5); ABG PCO2 53.1 mmHg (35.0-45.0); ABG PH 7.472 (7.350-7.450); ABG PO2 104.4 mmHg (75.0-100.0); COHb 0.3 % (0.5-1.5); MetHb 0.4 % (0.0-1.5); O2Hb 96.5 % (94.0-97.0); SITE, ABG Left Brachial
--- NOTE | 2017-07-31 14:44 | NUR ---
RN NOTES PT SEEN AND ASSESSED BY TAYLOR DIEHL; INFORMED RE CO2 AND ABG RESULTS
[2017-07-31] MEDS: acetaZOLAMIDE 250 MG TABLET PO SCH (15:57)
[2017-07-31 16:00] VITALS: BP 104/48
[2017-07-31] MEDS: LACTOSE-FREE FOOD 237 ML LIQUID PO SCH (17:00)
--- NOTE | 2017-07-31 18:46 | NUR ---
RN NOTES DIETARY DOESNT CARRY STRAWBERRY BOOST; MESSAGED TEOFILO Ronquillo FOR CHANGE IN ORDER. WILL ENDORSE FOR F/UP
--- NOTE | 2017-07-31 19:30 | NUR ---
Received patient in the bed.No unusual signs or symptoms observed or reported,no signs or discomfort or distress.On tele but order for med-surge.Wrist restraints attached and but loose enough on wrist ;engages in pleasant exchanges,no problems.
[2017-07-31 20:00] VITALS: BP 112/58
--- NOTE | 2017-07-31 20:16 | NUR ---
Patient is placed on MS as ordered,no problems
[2017-07-31] MEDS: DONEPEZIL 5 MG TABLET PO SCH (21:32)
--- NOTE | 2017-07-31 22:10 | NUR ---
Offered patient some water,accepted.Requested it with some ice.Gave patient water,no problems.
[2017-08-01] MEDS: IPRATROPIUM NEB FS 0.5 MG/2.5 ML AMPUL.NEB NEB SCH ×4 (01:51→20:00)
[2017-08-01] MEDS: ALBUTEROL FS 2.5 MG/3 ML VIAL.NEB NEB SCH ×4 (01:51→20:00)
--- NOTE | 2017-08-01 02:20 | NUR ---
Gave report to JAH Anderson,no problems
--- NOTE | 2017-08-01 02:30 | NUR ---
RN NOTES RESUMED CARE OF THIS PATIENT, RECEIVED REPORT FROM NURSE HOLDER. BILATERAL SOFT WRIST RESTRAINTS CHECKED FOR SAFETY AND CIRCULATION. PATIENT KEPT COMFORTABLE. WILL CONTINUE TO CLOSELY MONITOR, RT TENISHA AT BEDSIDE TO SUCTION PATIENT
[2017-08-01] MEDS: AMOX/CLAVULANATE 875 MG TABLET PO SCH ×2 (06:30→17:31)
--- NOTE | 2017-08-01 07:00 | NUR ---
RN CLOSING NOTES PATIENT RESTING COMFORTABLY IN BED, WILL ENDORSE THE PATIENT TO THE AM SHIFT NURSE FOR AMARILIS
--- NOTE | 2017-08-01 07:32 | NUR ---
RN NOTES RECEIVED PT FROM ALUMINA REFINERY OPERATOR, A&0X2-3 WITH PERIODS OF CONFUSION. ON 4L NC SATING WELL NO SOB OR DISTRESS BEATTY DRAINING TO GRAVITY. LFA 22G IV SITE INTACT NO IVF RUNNING. BILATERAL SOFT WRIST RESTRAINTS ON FOR SAFETY. BED LOCKED AND IN LOWEST POSITION, CALL LIGHT WITHIN REACH, SIDE RAILS UPX3, WILL CONT TO CARYL
[2017-08-01 08:00] VITALS: BP 107/49
[2017-08-01] MEDS: LACTOSE-FREE FOOD 237 ML LIQUID PO SCH ×2 (08:00→16:26)
[2017-08-01 08:04] LABS: CALCIUM, SERUM 8.7 mg/dL (8.5-10.1); CARBON DIOXIDE 32 mmol/L (21-32); CHLORIDE 102 mmol/L (98-107); CREATININE 0.8 mg/dL (0.6-1.3); GLUCOSE 78 mg/dL (74-106); POTASSIUM 3.4 mmol/L (3.5-5.1); SODIUM SERUM 140 mmol/L (136-145); UREA NITROGEN, BLOOD 43 mg/dL (7-18)
[2017-08-01] MEDS: acetaZOLAMIDE 250 MG TABLET PO SCH (08:24)
[2017-08-01] MEDS: FERROUS SULFATE (325 MG) 325 MG/TAB TABLET PO SCH (08:24)
[2017-08-01] MEDS: OLANZAPINE 5 MG/TAB.RAPDIS PO SCH (08:24)
[2017-08-01] MEDS: CALCIUM CARB 250MG /VITAMIN D 1 UDTAB PO SCH ×2 (08:24→16:26)
[2017-08-01] MEDS: ASCORBIC ACID 500 MG TABLET PO SCH (08:24)
[2017-08-01] MEDS: MULTIPLE VIT (LYCOPENE/FA/MV,CA,IRON,MIN/LUT)1 TAB PO SCH (08:24)
[2017-08-01] MEDS: CITALOPRAM HYDROBROMIDE 20 MG TABLET PO SCH ×2 (08:24→16:26)
[2017-08-01] MEDS: ZINC SULFATE 220 MG CAPSULE PO SCH (08:24)
[2017-08-01] MEDS: LEVOTHYROXINE SODIUM 50 MCG TABLET PO SCH (08:25)
[2017-08-01] MEDS: PANTOPRAZOLE 40 MG TABLET.DR PO SCH (08:25)
[2017-08-01] MEDS: FLUTICASONE/VILANTEROL 1 EACH BLST.W.DEV IH SCH (08:25)
[2017-08-01] MEDS: methylPREDNISolone SOD SUCC 40 MG/ML VIAL IV SCH ×2 (08:25→16:26)
[2017-08-01] MEDS: PROSOURCE / PROSTAT (PYXIS) 30 ML UDC PO SCH (08:25)
[2017-08-01] MEDS: ENOXAPARIN SODIUM 30 MG/0.3 ML DISP.SYRIN SQ SCH (08:26)
[2017-08-01] MEDS: NEOMY SULF/BACITRAC ZN/POLY 15 GM TUBE TP SCH (08:26)
[2017-08-01] MEDS ORDERED: POTASSIUM CHLORIDE 20 MEQ TAB.PRT.SR PO SCH (10:00)
[2017-08-01] MEDS ORDERED: Amox/Clavulanate PO (14:16)
[2017-08-01] MEDS ORDERED: PRED20TA PO (14:16)
[2017-08-01 16:00] VITALS: BP 103/79
--- NOTE | 2017-08-01 16:00 | NUR ---
RN NOTES PBX TECHNICIAN TEOFILO DIEHL NOTIFIED OF PTS BP IN THE 80S. ORDER FOR 500ML BOLUS, THEN OK TO TRANSFER.
[2017-08-01] MEDS: ACETAMINOPHEN 325 MG TABLET PO PRN (16:26)
[2017-08-01] MEDS: ACETYLCYSTEINE 10% SOLN 400 MG/4 ML VIAL NEB SCH ×2 (16:39→23:30)
[2017-08-01] MEDS ORDERED: IV NS 0.9% 500 ML BAG IV ONE (17:00)
--- NOTE | 2017-08-01 19:45 | NUR ---
RN NOTES RECEIVED PT. AWAKE, A/OX3, WITH PERIOD OF CONFUSION, ON BILATERAL SOFT WRIST RESTRAINTS,CHECK PT CIRCULATION, NO ABNORMALITIES NOTED PT IS GOING TO DISCHARGE AT 2100, WILL MONITOR PT. BLOOD PRESSURE , PT JUST RECEIVED BOLUS NS 500, CALL LIGHT WITHIN REACH, SIDERAILSUPX2, CONTINUE TO MONITOR
--- NOTE | 2017-08-01 20:00 | NUR ---
RN NOTES PT BLOOD PRESURE IS , WILL CALL DOCTORS YIELD IMPROVEMENT ENGINEER
--- NOTE | 2017-08-01 20:10 | NUR ---
RN NOTES PAGED THOMAS CAZARES-JOSIAH AND INFORMED HIM REGARDING PT. BLOOD PRESSURE, NO FURTHER ORDER JUST CONTINUE TO MONITOR
--- NOTE | 2017-08-01 20:30 | NUR ---
RN NOTES PT BLOOD PRESSURE WENT UP TO 97/51 HR-70, CALLED [facility] AND GAVE REPORT TO JOSE- NURSING PLASTIC BOAT BUFFER, INFORMED HER THAT PT WILL BE RECREATION ATTENDANT SUPERVISOR @ 2100
--- NOTE | 2017-08-01 21:00 | NUR ---
RN NOTES CALLED AMBULANCE AND FOLLOW UP ABOUT THE PICK-UP, SENIOR COPYWRITER INFORMED ME THAT IT WAS PUSH BACK TO [phone]
--- NOTE | 2017-08-01 21:30 | NUR ---
RN NOTES AMBULANCE CALLED AND INFORMED OUR SENIOR MANAGEMENT CONSULTANT THAT THERE GOING TO STEAM BOX OPERATOR THE PT 2 [phone]
[2017-08-01] MEDS: DONEPEZIL 5 MG TABLET PO SCH (21:38)
--- NOTE | 2017-08-01 21:40 | NUR ---
RN NOTES CALLED [facility] AND SPOKE TO JOSE - NURSING CUSTOMER SOLUTIONS ARCHITECT AND INFORMED HER THAT PT WILL BE MENTAL HEALTH NURSE PRACTITIONER @ 2200. . JOSE TOLD ME THAT THEY WILL ACCEPT THE PT
[2017-08-01 22:00] VITALS: BP 104/52
--- NOTE | 2017-08-01 22:00 | NUR ---
RN NOTES F/C WAS REMOVED PER FACILITY REQUEST
--- NOTE | 2017-08-01 22:00 | NUR ---
RN NOTES AMBULANCE CAME AND TERMINAL PRESS OPERATOR THE V/S IS 104/52, HR79, TRANSFERED PT TO [facility] ON STABLE CONDITION
[2017-08-02 00:04] VITALS: BP 107/49
== END 2017-08-01 22:25 | DRG 871 ==
LOC: ER 07:44 → EDBD 09:33 → ICU 09:33 → TELE1 07-26 15:18 → TELE-TD 07-26 16:59 → TELE1 07-30 15:03 → MEDSG1 07-31 20:17
PROVIDERS: ADMIT Internal Medicine; ATTEND Internal Medicine
PROC: 5A09357 Assistance with Respiratory Ventilation, Less than 24 Consecutive Hours, Continuous Positive Airway Pressure (ICD-10-PCS; principal; 2017-07-25)
DX: A41.9 Sepsis, unspecified organism (principal); J96.01 Acute respiratory failure with hypoxia; N17.0 Acute kidney failure with tubular necrosis; E43 Unspecified severe protein-calorie malnutrition; G93.40 Encephalopathy, unspecified; L89.150 Pressure ulcer of sacral region, unstageable; E87.4 Mixed disorder of acid-base balance; G20 Parkinson's disease; J44.1 Chronic obstructive pulmonary disease with (acute) exacerbation; I48.2 Chronic atrial fibrillation; E88.09 Other disorders of plasma-protein metabolism, not elsewhere classified; F03.90 Unspecified dementia, unspecified severity, without behavioral disturbance, psychotic disturbance, mood disturbance, and anxiety; E03.9 Hypothyroidism, unspecified; D50.9 Iron deficiency anemia, unspecified; F32.9 Major depressive disorder, single episode, unspecified; F41.9 Anxiety disorder, unspecified; I10 Essential (primary) hypertension; R65.20 Severe sepsis without septic shock; M62.50 Muscle wasting and atrophy, not elsewhere classified, unspecified site; Z68.20 Body mass index [BMI] 20.0-20.9, adult; F09 Unspecified mental disorder due to known physiological condition; E86.0 Dehydration; L89.899 Pressure ulcer of other site, unspecified stage; R53.81 Other malaise; L98.8 Other specified disorders of the skin and subcutaneous tissue
CPT/HCPCS: 31720; 36415; 36600; 71045-TC; 80048-TC; 80053-TC; 80076-TC; 81000-TC; 82803-TC; 83540-TC; 83605-TC; 83735-TC; 83880; 84100-TC; 84484-TC; 85025-TC; 85730-TC; 87040-TC; 87081-TC; 87086-TC; 87400; 93307-TC; 93970-TC; 94799-TC; A4606; A7526; J0456; J1650; J1940; J2060; J2920; J2930; J3490; J7030; J7040; J7050; J7060; Z7610